=== PATIENT | female | born 1990 | race Caucasian/White ===

== ENCOUNTER 2020-01-17 05:29 | Inpatient (IN) | payer MEDICAID ==
[2020-01-17] VITALS (8 sets, daily range): BP systolic 98–112; BP diastolic 56–63; Ht 162.6 cm; Wt 70.3 kg
[~2020-01-17] VITALS: Ht 162.6 cm; Wt 70.3 kg
--- NOTE | 2020-01-17 05:20 | NUR ---
THIS RN CALLED TO ER TO HELP MANAGE PP CARE OF PATIENT THAT DELIVERED A VIABLE MALE AT HOME WITH ASSISTANCE FROM EMT'S. DR ARNOLD MANAGING PT. REC'D PT AA&O X 4 W/BABY ON CHEST IN ED. DR ARNOLD REQUEST GUIDANCE ON ASSESSING AND MANAGING PT. FUNDAL CHECK DONE. FUNDUS FIRM,U/1, SMALL LOCHIA NOTED. PERINEUM CLEANSED SO DR ARNOLD MAY INSPECT FOR LACERATIONS AND TEARS. MD REMOVES SEVERAL SMALL CLOTS W/VAG EXAM. FUNDAL MASSAGE PERFORMED AT TIME OF VAG EXAM. NO ADDITIONAL BLOOD CLOTS EXPRESSED W/MASSAGE. CONSTANT TRICKLE OF BLEEDING NOTED. LACERATION NOTED PER MD. 10UNITS PITOCIN IM GIVEN AND PAIN MEDICATION GIVEN SO MD MAY PERFORM VAGINAL SWEEP. PERINEUM CLEANSED AGAIN FOR MONITORING OF BLEEDING.
--- NOTE | 2020-01-17 05:57 | NUR ---
DELIVERY TIME AT HOME WAS 0451 PER EMS.
--- NOTE | 2020-01-17 06:00 | NUR ---
PT TRANSPORTED VIA STRETCHER FROM ED PER THIS RN AND A NAZANIN RN. PT ABLE TO TRANSFERS SELF TO BED. GOWN PROVIDED. [facility],U/, WENDY LAMBERT NOTED. PT CURRENTLY DENIES PAIN AT PRESENT.
--- NOTE | 2020-01-17 06:15 | NUR ---
Dale WINSLOW RN TO BEDSIDE TO GET ADMISSION PAPERWORK SIGNED AND COMPLETED. SIG OTHER TO BEDSIDE AT THIS TIME.
[2020-01-17 07:58] LABS: HEMATOCRIT 31.5 % (36.0-48.0); HEMOGLOBIN 10.6 g/dL (12-16); MCH 31.5 pg (26.0-34.0); MCHC 33.7 g/dL (31.0-37.0); MCV 93.5 fL (80.0-100.0); MEAN PLATELET VOLUME 11.9 fL (7.4-10.4); RBC 3.37 10x6/uL (4.00-5.40); RDW 12.3 % (11.5-14.5); WBC 21.2 10x3/uL (4.8-10.8)
[2020-01-17 09:02] LABS: LYMPHOCYTES 12 % (15-50); MONOCYTES 1 % (2-11); NEUTROPHILS 85 % (40-80); PLATELET ESTIMATE NORMAL
--- NOTE | 2020-01-17 10:03 | NUR ---
PT RATES PAIN AT 2/10 AND DENIES NEED TO VOID AT THIS TIME, NURSERY NURSE AT BEDSIDE WITH . CALL LIGHT IN REACH WITH SIDE RAILS UP X 2.
[2020-01-17 10:40] LABS: HIV 1 & 2- RAPID SCREEN NEGATIVE (NEGATIVE)
--- NOTE | 2020-01-17 12:00 | NUR ---
NO REQUESTS. SM TO MOD LOCHIA NOTED ON PAD. FUNDUS UU/FIRM.
--- NOTE | 2020-01-17 13:00 | NUR ---
REG LUNCH SERVED.
--- NOTE | 2020-01-17 14:00 | NUR ---
UP TO BATHROOM. VOIDED AND URINE SPEC OBTAINED. INTO SHOWER- NOTED BASEBALL SIZE CLOT X1. LINENS CHANGED. RETURNS TO BED. TOLERATED WELL.
--- NOTE | 2020-01-17 15:01 | NUR ---
RESTING IN BED -HOLDING INFANT. DENIES CRAMPING AT THIS TIME AND DENIES NEED FOR MEDICATION.
[2020-01-17 15:05] LABS: UDS - AMPHET NEGATIVE QUAL (NEGATIVE); UDS - BARB NEGATIVE QUAL (NEGATIVE); UDS - BENZO NEGATIVE QUAL (NEGATIVE); UDS - COCAINE NEGATIVE QUAL (NEGATIVE); UDS - OPIATE POSITIVE QUAL (NEGATIVE); UDS - PCP NEGATIVE QUAL (NEGATIVE); UDS - THC NEGATIVE QUAL (NEGATIVE)
--- NOTE | 2020-01-17 17:28 | NUR ---
VS DONE. FUNDUS UU/FIRM. NOTED SMALL EGG SIZE CLOT IN PAD WITH SCANT OTHER LOCHIA. UP TO BATHROOM- UNABLE TO VOID. ENCOURAGED TO DRINK MORE WATER, INSTRUCTED ON PERICARE USING BETADINE AND WARM WATER.
--- NOTE | 2020-01-17 19:15 | NUR ---
THIS RN TO BEDSIDE FOR SHIFT ASSESSMENT. REC'D PT AA&O X 4 IN [facility] W/BABY UP IN ARMS. PAIN AND NEEDS ASSESSED. PT DENIES NEEDS. REPORTS SHE ONLY FEELS SORE AND DECLINES OFFER TO MEDICATE HER WITH MOTRIN AT THIS TIME. PAIN MEDICATION EDUCATION GIVEN. WHITE BOARDS UPDATED. SHIFT ASSESSMENT COMPLETED. SEE FLOWSHEET. PP TREATS PROVIDED W/MEAL TICKET GIVEN TO SIG OTHER. PT ENCOURGED TO DRINK A LOT OF WATER TONIGHT. TO GET UP TO EMPTY HER BLADDER AT LEAST EVERY 2-3 HRS. POC FOR PM SHIFT GIVEN. PT VERBALIZES UNDERSTANDING AND AGREEABLE. SALINE LOCK FLUSHED W/10ML NS. FLUSHES WELL. SITE WNL. FRESH ICE WATER SERVED IN [facility]. PT DENIES NEEDS AT THIS TIME. BED LOW, SIDE RAILS UP X 2, PHONE AT BEDSIDE. SIG OTHER AT BEDSIDE.
--- NOTE | 2020-01-18 02:00 | NUR ---
TAKING OVER CARE FOR THIS PT. INTRODUCED SELF TO PT AND . PT HAS NO C/O AT THIS TIME. HER FUNDUS IS FIRM. SHE STATES HER BLEEDING IS SMALL. SHE IS AMBULATORY IN HER ROOM.
--- NOTE | 2020-01-18 04:10 | NUR ---
PT IS DOZING ON AND OFF WITH THE LIGHTS ON. SHE HAS NO C/O OR NEEDS.
[2020-01-18 05:47] LABS: BASOPHILS 0.2 % (0-2); EOSINOPHILS 2.3 % (0-7); HEMATOCRIT 29.1 % (36.0-48.0); HEMOGLOBIN 9.5 g/dL (12-16); IMMATURE GRANULOCYTES 1.1 % (0-5); LYMPHOCYTES 25.3 % (15-50); MCH 30.9 pg (26.0-34.0); MCHC 32.6 g/dL (31.0-37.0); MCV 94.8 fL (80.0-100.0); MEAN PLATELET VOLUME 11.8 fL (7.4-10.4); MONOCYTES 10.8 % (2-11); NEUTROPHILS 60.3 % (40-80); PLATELET COUNT 212 10x3/uL (130-400); RBC 3.07 10x6/uL (4.00-5.40); RDW 12.5 % (11.5-14.5)
[2020-01-18 05:54] LABS: WBC 10.9 10x3/uL (4.8-10.8)
--- NOTE | 2020-01-18 06:34 | NUR ---
PT IS RESTING QUIETLY WITH HER EYES CLOSED. FOB IS WATCHING OVER THE BABY. HE IS VERY ATTENTIVE. NO C/O OR NEEDS.
--- NOTE | 2020-01-18 08:00 | NUR ---
ROUNDING COMPLETE. PATIENT SITTING UP IN BED EATING. SIG OTHER UP IN ROOM HOLDING BABY. PATIENT DENIES NEEDS AT THIS TIME.
[2020-01-18 08:20] VITALS: BP 104/57
--- NOTE | 2020-01-18 08:35 | NUR ---
ASSESSMENT COMPLETE. SEE FLOWSHEET. VSS. PATIENT A&O X4. DENIES PAIN. STATES VOIDING GOOD, DOES NOT THINK SHE HAS HAD A BOWEL MOVEMENT SINCE GIVING . FUNDUS FIRM. IV SITE WNL. SIG OTHER IN ROOM. NURSERY NURSE AT BEDSIDE WITH . PATIENT DENIES ANY NEEDS AT THIS TIME. CALL LIGHT IN REACH. BED RAILS UP X2.
--- NOTE | 2020-01-18 09:31 | NUR ---
ROUNDING COMPLETE. PATIENT DENIES ANY PAIN OR NEEDS AT THIS TIME. SIG OTHER IN ROOM ASLEEP, BABY IN CRIB ASLEEP. CALL LIGHT IN REACH. BED RAILS UP X2.
--- NOTE | 2020-01-18 10:13 | NUR ---
ROUNDING COMPLETE. PATIENT DENIES PAIN OR NEEDS AT THIS TIME. SIG OTHER IN ROOM. PATIENT STATES IS DRINKING LOTS OF WATER.
--- NOTE | 2020-01-18 11:59 | NUR ---
ROUNDING COMPLETE. PATIENT DENIES PAIN OR NEEDS AT THIS TIME. SIG OTHER IN ROOM ASLEEP. PATIENT DRINKING WATER AND STATES WILL TRY TO GO TO THE BATHROOM IN A FEW MINUTES. CALL LIGHT AND PHONE IN REACH.
[2020-01-18 12:32] VITALS: BP 102/58
--- NOTE | 2020-01-18 12:34 | NUR ---
ROUNDING COMPLETE. VSS. PATIENT SITTING UP IN BED GETTING READY TO EAT LUNCH. DENIES PAIN. STATES DRINKING WATER BUT HAS NOT VOIDED. STATES DOES NOT FEEL THE NEED AND DENIES ANY PRESSURE OR PAIN IN ABD. WILL CONTINUE TO MONITOR. PATIENT DENIES NEEDS AT THIS TIME. CALL LIGHT AND PHONE IN REACH.
--- NOTE | 2020-01-18 13:00 | NUR ---
REPORT RECEIVED FROM Abdulkadir HORVATH RN. TO ROOM TO CHECK ON PT. PT SITTING UP IN BED, FOB AT BEDSIDE, INFANT IN OPEN CRIB AT BEDSIDE. NO CONCERNS OR NEEDS VOICED AT THIS TIME.
--- NOTE | 2020-01-18 15:33 | NUR ---
ROOM CHECK. PT SITTING UP IN BED; INFANT REMAINS IN OPEN CRIB AT BEDSIDE. FOB ON SOFA IN ROOM. NO NEEDS VOICED AT THIS TIME.
--- NOTE | 2020-01-18 18:10 | NUR ---
DHS HERE TO SEE MOTHER.
--- NOTE | 2020-01-18 18:59 | NUR ---
ROOM CHECK. INFANT IN MOTHER'S ARMS FEEDING. NO C/O PAIN OR OTHER NEEDS AT THIS TIME.
[2020-01-18 19:15] VITALS: BP 110/58
--- NOTE | 2020-01-18 19:15 | NUR ---
ASSESSMENT PER FLOW SHEET, VS OBTAINED, SALINE LOCK IN LEFT AC INTACT WITH N REDNESS OR EDEMA, FF, ML, U/2, LITE BLEEDING NOTED WITH NO CLOTS, PT REPORTS FLATUS, NO BM AND VOIDING WITH NO DIFFICULTY, PT DENIES PAIN, REQUESTED AND SERVED FRESH H20, PT DENIES FURTHER NEEDS, IN OPEN CRIB CART AND FOB AT BEDSIDE
--- NOTE | 2020-01-18 20:40 | NUR ---
PT COMMANDER POLICE RESERVES LIGHT, PT INQUIRING ABOUT GETTING MEDICAL RECORDS COPIED AT THIS TIME, PT INFORMED THAT SHE WOULD NEED TO NOTIFY MEDICAL RECORDS AFTER DISCHARGE TO OBTAIN MEDICAL RECORDS, PT VERBALIZES UNDERSTANDING, DENIES FURTHER NEEDS
--- NOTE | 2020-01-18 21:25 | NUR ---
PT RESTING WITH EYES CLOSED, RESP QUIET, NO DISTRESS NOTED, LEFT UNDISTURBED AT THIS TIME, IN OPEN CRIB CART AND FOB AT BEDSIDE
--- NOTE | 2020-01-18 22:41 | NUR ---
PT RESTING WITH EYES CLOSED, RESP QUIET, NO DISTRESS NOTED, LEFT UNDISTURBED AT THIS TIME, IN OPEN CRIB CART AND FOB AT BEDSIDE
--- NOTE | 2020-01-19 00:04 | NUR ---
PT RESTING WITH EYES CLOSED, RESP QUIET, NO DISTRESS NOTED, LEFT UNDISTURBED AT THIS TIME, IN OPEN CRIB CART AND FOB AT BEDSIDE
--- NOTE | 2020-01-19 02:20 | NUR ---
PT AWAKE, DENIES NEEDS OR PAIN AT THIS TIME, TO NSY VIA OPEN CRIB CART PER THIS RN
--- NOTE | 2020-01-19 04:40 | NUR ---
PT RESTING WITH EYES CLOSED, RESP QUIET, NO DISTRESS NOTED, LEFT UNDISTURBED AT THIS TIME, IN OPEN CRIB CART AND FOB AT BEDSIDE
--- NOTE | 2020-01-19 06:50 | NUR ---
PT RESTING WITH EYES CLOSED, RESP QUIET, NO DISTRESS NOTED, LEFT UNDISTURBED AT THIS TIME, IN OPEN CRIB CART AND FOB AT BEDSIDE
[2020-01-19 07:43] VITALS: BP 101/60
--- NOTE | 2020-01-19 07:43 | NUR ---
RECEIVED PT SITTING UP IN BED. VISITS WITH SO. SO CARING FOR . PT VSS. HRRR WITHOUT AUDIBLE MURMUR. BBS CLEAR. BS X 4. ABDOMEN SOFT/NON-DISTENDED. FUNDUS FIRM AT U/2. RUBRA LOCHIA SMALL AMT. NO CLOTS EXPRESSED. PERINEUM WITHOUT EDEMA. NEG HOMANS' SIGN. PPP. MILD, NON-PITTING EDEMA NOTED TO ANKLES/FEET. PT DENIES PAIN OR NEEDS. SL TO LEFT AC. SITE CLEAR. SR UP X 2. CALL LIGHT IN REACH.
--- NOTE | 2020-01-19 09:22 | NUR ---
SL DC'D WITH CATHELON INTACT. PRESSURE BANDAGE TO SITE. PT ROBERT WELL.
--- NOTE | 2020-01-19 11:00 | NUR ---
PT SITTING UP IN BED. CARING FOR INFANT. DENIES C/O PAIN OR NEEDS.
[2020-01-19 11:11] LABS: RUBELLA IGG 1.08 index (Immune >0.99)
--- NOTE | 2020-01-19 12:45 | NUR ---
PT SITTING UP IN BED. HOLDS WITH MUCH WARMTH SHOWN. DENIES PAIN OR NEEDS.
[2020-01-19 13:11] LABS: HEPATITIS C ANTIBODY 0.1 S/CO RAT (0.0-0.9)
--- NOTE | 2020-01-19 14:15 | NUR ---
PT LYING SUPINE IN BED. WAKES UPON ENTERING ROOM. IN OPEN CRIB BESIDE PT BED. SO ON COUCH ASLEEP. PT DENIES PAIN OR NEEDS. AWAITING OB AND FRANKFURTER INSPECTOR TO ROUND.
--- NOTE | 2020-01-19 16:30 | NUR ---
PT SITTING UP IN BED. VISITS WITH SO. DENIES PAIN OR NEEDS. SR UP X 2. CALL LIGHT IN REACH.
--- NOTE | 2020-01-19 17:10 | NUR ---
DR BAHENA VISITS WITH PT.
--- NOTE | 2020-01-19 18:10 | NUR ---
DISCHARGE INSTRUCTIONS GIVEN TO PT. PT VERBALIZES UNDERSTANDING OF ALL INSTRUCTIONS. COPIES GIVEN TO PT. ROOMING IN POLICY EXPLAINED TO AND SIGNED BY PT. PT PREPARES FOR DISCHARGE.
--- NOTE | 2020-01-19 18:50 | NUR ---
PT TRANSFERED VIA AMBULATORY TO ROOM 1223. PT ORIENTED TO ROOM. TOILETRIES AND LINENS PROVIDED TO PT. PT DISCHARGED TO ROOMING IN STATUS.
== END 2020-01-19 18:50 | disposition home or self-care (01) | DRG 776 ==
LOC: EDBD 05:29 → D.ER 05:29 → D.LD 06:12
PROVIDERS: ADMIT Obstetrics & Gynecology; ATTEND Obstetrics & Gynecology
DX: Z39.0 Encounter for care and examination of mother immediately after delivery (principal)